=== PATIENT | male | born 1960 | race African-American/Black ===

== ENCOUNTER 2020-06-01 09:41 | Emergency (ER) | payer OTHER ==
[~2020-06-01] VITALS: Ht 170.2 cm; Wt 86.2 kg
[2020-06-01] MEDS ORDERED: IV NORMAL SALINE 1,000ML 1,000 ML IV ONE (10:00)
--- NOTE | 2020-06-01 10:12 | PHYS DOC ---
Past History Past Medical History: Hypertension, Other Additional Past Medical Histor: gout Past Surgical History: No Surgical History Alcohol Use: None General Adult EDM: Chief Complaint: SEIZURE HPI: HPI: 59-year-old male past medical history significant for hypothyroidism and hypertension, follows at [facility], presents the ED brought in by EMS after ana (x15 yrs), called 911, concern for witnessed seizure, described as entire body shaking, while pt was lying in his bed, associated urinary incontinence that lasted for approximately 5 minutes. EMS reports pt was initially postictal, but is now A&O x3, GCS 15. Patient states he felt well this morning, no recent fevers, head or neck injury, no past history of TBI. Has had 1 prior seizure approximately 15 years ago in the . Patient does report he had 2 beers this morning. No preceding symptoms or aura. Currently has no complaints in the ED, states "I was just sitting there and woke up with alot of people around me." No h/o alcohol dependence or withdrawal seizures. Is on one BP medication that he has not taken today. Denies any intentional drug overdose-has not taken tylenol recently. Cannot recall what his normal BP is. Follows at the [facility]. Review of Systems: Review of Systems: Constitutional: Denies fever or chills Eyes: Denies change in visual acuity HENT: Denies nasal congestion or sore throat Respiratory: Denies cough or shortness of breath Cardiovascular: Denies chest pain or edema GI: Denies abdominal pain, nausea, vomiting, bloody stools or diarrhea : Denies dysuria or hematuria Musculoskeletal: Denies back pain or joint pain Integument: Denies rash or diaphoresis Neurologic: Denies headache, neck pain, focal weakness or sensory changes Endocrine: Denies polyuria or polydipsia Lymphatic: Denies swollen glands Psychiatric: Denies depression or anxiety Current Medications: Current Meds: Current Medications Medications (Trade) Dose Ordered Sig/Vicky Start Time Stop Time Status Last Admin Dose Admin Sodium Chloride 1,000 ml @ 1,000 mls/hr 1X ONCE 06/01/20 10:00 06/01/20 10:59 UNV Physical Exam: PE: Constitutional: Well developed, well nourished, no acute distress, non-toxic appearance, hypertensive HENT: Normocephalic, atraumatic, Eyes: PERRLA, EOMI, conjunctiva normal, no discharge, left lateral tongue con tusion that resembles a bite sherrill - no laceration, no tongue fasciculations, glossy eyes-suspect intoxication, no midline neck pain, no neck bruits Neck: Normal range of motion, supple, Cardiovascular: S1/2 present, regular rhythm, tachycardic Lungs & Thorax: Speaking in full sentences, bilateral equal chest rise, no tachypnea or increased work of breathing Abdomen: soft, no tenderness, Skin: Warm, dry, no erythema, no rash. [] Back: No midline spinal tenderness, no CVA tenderness. [] Extremities: No tenderness, no cyanosis, no edema, no tremors, very large (suspect) olecranon bursa vs lipomas bl - not warm/red, nontender, pt states this is his "gout" and va occasionally drains them Neurologic: Alert and oriented X 3, normal motor function, normal sensory function, no focal deficits noted. [] Psychologic: Affect normal, judgement normal, mood normal. [] Current Patient Data: Vital Signs: Vital Signs Date Time Temp Pulse Resp B/P (MAP) Pulse Ox O2 Delivery O2 Flow Rate FiO2 06/01/20 09:41 97.8 113 16 172/123 (139) 97 Room Air EKG: EKG: Sinus tachycardia at 102, left axis deviation, normal intervals, T wave inversion lead III, no ST elevations or ST depressions Radiology/Procedures: Radiology/Procedures: IMAGING REPORT Signed PATIENT: SHANNAN ULLOA CACCOUNT: [id number] : 1960 LOCATION: ER AGE: 59 SEX: M EXAM STATUS: REG ER ORD. PHYSICIAN: SKYLAR HALL DO REASON: SEIZURE HX: SEIZURE 15 YRS AGO PROCEDURE: CT HEAD WO CONTRAST EXAM: Head CT without contrast. HISTORY: Seizure. TECHNIQUE: Computed tomographic images of the head were obtained without contrast. *One or more of the following individualized dose reduction techniques were utilized for this examination: 1. Automated exposure control. 2. Adjustment of the mA and/or kV according to patient size. 3. Use of iterative reconstruction technique. COMPARISON: None. FINDINGS: There is no acute or subacute extra-axial or intraparenchymal hemorrhage. There is no mass effect or midline shift. There is no hydrocephalus. There is decreased attenuation within the right parietal-occipital junction likely due to chronic infarction. The bolaños-white matter differentiation pattern is intact. The visualized portions of the orbits, paranasal sinuses and mastoid air cells are unremarkable. No suspicious calvarial lesion is seen. IMPRESSION: 1. No acute intracranial finding. Note is made that MRI is more sensitive for acute infarction and epileptogenic lesions. 2. Suspected infarct within the right parieto-occipital junction. Electronically signed by: Jolynn Alcantar MD (06/01/2020 10:32 AM) [id number] DICTATED AND SIGNED BY: JOLYNN ALCANTAR MD DATE: 06/01/20 1031 CC: PCP,NO; SKYLAR HALL DO ~MTH0 0 IMAGING REPORT Signed PATIENT: SHANNAN ULLOA CACCOUNT: [id number] : 1960 LOCATION: ER AGE: 59 SEX: M EXAM STATUS: REG ER ORD. PHYSICIAN: SKYLAR HALL DO REASON: SEIZURE PROCEDURE: PORTABLE CHEST 1V EXAM: Chest, single view. HISTORY: Seizure. COMPARISON: None. FINDINGS: A frontal view of the chest is obtained. There is no infiltrate, pleural effusion or pneumothorax. The heart is normal in size. IMPRESSION: No acute pulmonary finding. Electronically signed by: Jolynn Alcantar MD (06/01/2020 10:32 AM) [id number] DICTATED AND SIGNED BY: JOLYNN ALCANTAR MD DATE: 06/01/201031 CC: PCP,NO; SKYLAR HALL DO ~MTH0 0 IMAGING REPORT Signed PATIENT: SHANNAN ULLOA CACCOUNT: [id number] : 1960 LOCATION: ER AGE: 59 SEX: M EXAM STATUS: REG ER ORD. PHYSICIAN: SKYLAR HALL DO REASON: ALTERED MENTAL STATUS PROCEDURE: CT ANGIOGRAPHY HEAD AND NECK EXAM: CT angiogram of the head and neck with intravenous contrast. HISTORY: Altered mental status. TECHNIQUE: Computed tomographic images of the head and neck were obtained following the administration of intravenous contrast. 3-dimensional maximum intensity projection images were obtained. *One or more of the following individualized dose reduction techniques were utilized for this examination: 1. Automated exposure control. 2. Adjustment of the mA and/or kV according to patient size. 3. Use of iterative reconstruction technique. COMPARISON: Noncontrast head CT obtained on the same date. FINDINGS: There is a standard aortic arch branching pattern. The visualized aorta is normal in caliber. No aortic dissection is seen. The visualized pulmonary arteries are patent. There is no pneumothorax or pulmonary infiltrate within the visualized upper lobes. The aortic arch great vessels are widely patent. There is suspected segmental atherosclerotic plaque involving the origins and proximal 5 mm of the right vertebral artery with greater than 75 percent stenosis. The left vertebral artery is dominant. The remainder of the vertebral arteries are widely patent. There is severely calcified atherosclerotic plaque involving the right carotid bulb, origin of the right external carotid artery and origin and proximal right internal carotid artery. This results in 50-69 percent stenosis of the carotid bulb and near complete occlusion at the origin of the internal and external carotid arteries. There is reconstitution of flow within the remainder of the right internal carotid artery. There is slight ectasia of the cavernous segment of the right internal carotid artery. There is moderate to severe partially calcified atherosclerotic plaque involving the left carotid bulb and proximal internal and external carotid arteries. This results in less than 20 percent stenosis involving the proximal left internal carotid artery and no significant stenosis involving the proximal external carotid artery. There is no evidence of hemodynamically significant stenosis involving the intracranial arteries. The anterior communicating artery is patent. There are suspected developmentally absent or hypoplastic posterior communicating arteries, a normal variant. There is no suspicious enhancing lesion. There is no mass effect or midline shift. There is no hydrocephalus. There is encephalomalacia at the right parieto-occipital junction likely due to chronic infarction. There are advanced degenerative changes involving the cervical spine. This results in foraminal and central canal stenosis at multiple cervical levels. IMPRESSION: 1. Severely calcified atherosclerotic plaque involving the right carotid bifurcation. This results in near complete occlusion at the origins of the right internal and external carotid arteries and 50-69 percent stenosis involving the carotid bulb. 2. Moderate partially calcified atherosclerotic plaque involving the left carotid bifurcation, with less than 50 percent stenosis involving the proximal left internal carotid artery and no stenosis involving the left external carotid artery. 3. Severe atherosclerotic plaque involving the origin and proximal right vertebral artery, with near complete occlusion. This vessel reconstitutes to normal caliber within 5 mm from the vessel origin. The left vertebral artery slightly dominant. 4. Chronic infarct involving the right parieto-occipital junction. 5. Severe multilevel degenerative change involving the cervical spine, resulting in stenosis at multiple levels. 6. Note is made that MRI is more sensitive for acute infarction. PQRS Compliance Statement - Stenosis calculations for CT, MR and conventional angiography are based upon measurement of the distal ICA diameter in accordance with the NASCET methodology. Stenosis calculations for carotid ultrasound studies are derived from validated velocity criteria which are known to correlate with the NASCET methodology. Electronically signed by: Jolynn Alcantar MD (06/01/2020 12:19 PM) [id number] DICTATED AND SIGNED BY: JOLYNN ALCANTAR MD DATE: 06/01/20 1206 CC: PCP,RAQUEL; SKYLAR HALL DO ~MTH0 0 Heart Score: Risk Factors: Risk Factors: DM, Current or recent (<one month) smoker, HTN, HLP, family history of CAD, obesity. Risk Scores: Score 0 - 3: 2.5% MACE over next 6 weeks - Discharge Home Score 4 - 6: 20.3% MACE over next 6 weeks - Admit for Clinical Observation Score 7 - 10: 72.7% MACE over next 6 weeks - Early Invasive Strategies Course & Med Decision Making: Course & Med Decision Making Pertinent Labs and Imaging studies reviewed. (See chart for details) Patient with uncontrolled asymptomatic hypertension no signs of endorgan damage- has not taken his hypertensive medications today-I did offer admission for HTN and observation for seizure activity, but pt adamentaly refuses stating "I need a few days." Per [facility] policy it's not necessary given no end organ damage. CT imaging consistent with old CVA, significant right vertebral artery stenosis and significant left carotid artery stenosis. I discussed with vascular surgery at [facility] Dr. Marcus regarding these findings-given patient's lack of neurologic deficits (NIHSS 0) patient can follow-up outpatient and does not need any emergent surgery at this time. Labs also show marijuana abuse. Will discharge home with strict ED return precautions were given for recurrent seizures, altered mental status or neurologic deficits. Encouraged urgent outpatient follow-up with PMD and vascular surgery. Life-threatening processes were considered but are low suspicion at this time, given history, physical exam and ED workup. Pt was educated on all prescription medications and adverse effects. All patient's questions were answered and pt was stable at time of discharge. Life/limb-threatening differential includes but is not limited to, intracranial hemorrhage, diffuse axonal injury, spinal cord syndrome, unstable cervical fracture or SCIWORA, fractures or joint dislocations, neurovascular injuries, organ injury or laceration, pneumothorax, pneumoperitoneum, pericardial tamponade, unstable pelvic fracture, compartment syndrome, flail chest or respiratory distress, burn injury or asphyxiation I spoken with the patient and her caregivers. I explained the patient's condition, diagnoses and treatment plan based on the information available to me at this time. I have answered the patient and her caregiver's questions and addressed any concerns. The patient and her caregivers have a good understanding of patient's diagnosis, condition and treatment plan as can be expected at this point. Vital signs have been stable. Patient's condition is stable and appropriate for discharge from the emergency department. Patient will pursue further outpatient evaluation with primary care physician or other designated or consulting physician as outlined in the discharge instructions. The patient and/or caregivers are agreeable to this plan of care and follow-up instructions have been explained in detail. The patient and/or caregivers have received these instructions in written form and have expressed an understanding of the discharge instructions. The patient and/or caregivers are aware that any significant change of condition or worsening of symptoms should prompt immediate return to this or the closest emergency department or call to 911. Genia Disclaimer: Genia Disclaimer: This electronic medical record was generated, in whole or in part, using a voice recognition dictation system. 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 Uncontrolled hypertension Disposition: 01 DC HOME SELF CARE/HOMELESS Condition: STABLE Referrals: PCP,NO (PCP) [facility] 48 hours or FOLLOW UP WITH FAMILY MEDICINE: [address] [place] [address] [place] [address] [address] [address] [phone] Patient Instructions: Carotid Stenosis and Carotid Endarterectomy, Seizure, Adult Additional Instructions: FOLLOW UP WITH VASCULAR SURGERY: [facility] Address: [address] [place] [address] EMERGENCY DEPARTMENT GENERAL DISCHARGE INSTRUCTIONS Thank you for coming to [facility] (ED) today and trusting us with you care. We trust that you had a positivie experience in our Emergency Department. If you wish to speak to the department management, you may call the director at [phone]. YOUR FOLLOW UP INSTRUCTIONS ARE FOLLOWS: 1. Do you have a private Doctor? If you do not have a private doctor, please ask for a resource list of physicians or clinics that may be able to assist you with follow up care. 2. The Emergency Physician has interpreted your x-rays. The X-Ray specialist will also review them. If there is a change in the findings, you will be notified in 48 hours when at all possible. 3. A lab test or culture has been done, your results will be reviewed and you will be notified if you need a change in treatment. ADDITIONAL INSTRUCTIONS AND INFORMATION: 1. Your care today has been supervised by a physician who is specially trained in emergency care. Many problems require more than one evaluation for a complete diagnosis and treatment. We recommend that you schedule your follow up appointment as recommended to ensure complete treatment of you illness or injury. If you are unable to obtain follow up care and continue to have a problem, or if your condition worsens, we recommend that you return to the ED. 2. We are not able to safely determine your condition over the phone nor are we able to give sound medical advice over the phone. For these safety reasons, if you call for medical advice we will ask you to come to the ED for further evaluation. 3. If you have any questions regarding these discharge instructions please call the ED at [phone]. SAFETY INFORMATION: In the interest of safety, wellness, and injury prevention; we encourage you to wear your sealbelt, if you smoke; quite smoking, and we encourage family to use a protective helmet for bicycling and other sporting events that present an increased risk for head injury. IF YOUR SYMPTOMS WORSEN OR NEW SYMPTOMS DEVELOP, OR YOU HAVE CONCERNS ABOUT YOUR CONDITION; OR IF YOUR CONDITION WORSENS WHILE YOU ARE WAITING FOR YOUR FOLLOW UP APPOINTMENT; EITHER CONTACT YOUR PRIMARY CARE DOCTOR, THE PHYSICIAN WHOSE NAME AND NUMBER YOU WERE GIVEN, OR RETURN TO THE ED IMMEDIATELY. SKYLAR HALL DO Jun 01, 2020 10:12
[2020-06-01 10:28] LABS: BASO # 0.1 x10^3/uL (0.0-0.2); BASO % 1 % (0-3); EOS # 0.1 x10^3/uL (0.0-0.7); EOS % 1 % (0-3); HEMATOCRIT 45.3 % (39.0-53.0); HEMOGLOBIN 15.6 g/dL (13.0-17.5); LYMPH # 2.3 x10^3/uL (1.0-4.8); LYMPH % 24 % (24-48); MEAN CORPUSCULAR HEMOGLOBIN 34 pg (25-35); MEAN CORPUSCULAR HGB CONC 34 g/dL (31-37); MEAN CORPUSCULAR VOLUME 99 fL (79-100); MONO # 0.6 x10^3/uL (0.0-1.1); MONO % 6 % (0-9); NEUT # 6.6 x10^3uL (1.8-7.7); NEUT % 69 % (31-73); PLATELET COUNT 342 x10^3/uL (140-400); RED BLOOD COUNT 4.57 x10^6/uL (4.30-5.70); RED CELL DISTRIBUTION WIDTH 13.6 % (11.5-14.5); WHITE BLOOD COUNT 9.6 x10^3/uL (4.0-11.0)
--- NOTE | 2020-06-01 10:34 | RAD ---
ADDENDUM #1 Addendum: As noted in the findings section of the report, the aforementioned infarct at the right par ietal occipital junction is CHRONIC in appearance. Electronically signed by: Jolynn Bhatti MD (06/01/2020 12:08 PM) [id number] ORIGINAL REPORT EXAM: Head CT without contrast. HISTORY: Seizure. TECHNIQUE: Computed tomographic images of the head were obtained without contrast. *One or more of the following individualized dose reduction techniques were utilized for this examina tion: 1. Automated exposure control. 2. Adjustment of the mA and/or kV according to patient size. 3. Use of iterative reconstruction technique. COMPARISON: None. FINDINGS: There is no acute or subacute extra-axial or intraparenchymal hemorrhage. There is no mass effect or midline shift. There is no hydrocephalus. There is decreased attenuation within the right parietal-occipital junction likely due to chronic inf arction. The bolaños-white matter differentiation pattern is intact. The visualized portions of the orbits, paranasal sinuses and mastoid air cells are unremarkable. No s uspicious calvarial lesion is seen. IMPRESSION: 1. No acute intracranial finding. Note is made that MRI is more sensitive for acute infarction and ep ileptogenic lesions. 2. Suspected infarct within the right parieto-occipital junction. Electronically signed by: Jolynn Bhatti MD (06/01/2020 10:32 AM) [id number]
--- NOTE | 2020-06-01 10:35 | RAD ---
EXAM: Chest, single view. HISTORY: Seizure. COMPARISON: None. FINDINGS: A frontal view of the chest is obtained. There is no infiltrate, pleural effusion or pneumo thorax. The heart is normal in size. IMPRESSION: No acute pulmonary finding. Electronically signed by: Jolynn Bhatti MD (06/01/2020 10:32 AM) [id number]
[2020-06-01 10:42] LABS: ETHANOL < 10 mg/dL (0-10); SALIC 6.6 mg/dL (2.8-20.0)
[2020-06-01 10:43] LABS: ACETAMIN < 2.0 mcg/mL (10-30); CREATININE 1.2 mg/dL (0.7-1.3); GFR 75.2; POTASSIUM 4.3 mmol/L (3.5-5.1)
[2020-06-01] MEDS ORDERED: hydrALAZINE 20 MG/ML VIAL. IV ONE (10:45)
[2020-06-01 10:53] LABS: ALBUMIN 3.6 g/dL (3.4-5.0); ALBUMIN/GLOBULIN RATIO 0.8 (1.0-1.7); MAGNESIUM 1.8 mg/dL (1.8-2.4); TOTAL BILIRUBIN 0.4 mg/dL (0.2-1.0); TOTAL PROTEIN 7.9 g/dL (6.4-8.2)
[2020-06-01 11:00] VITALS: BP 163/115
--- NOTE | 2020-06-01 11:07 | EKG ---
[address] [address] Test Date: 2020-06-01 Test Time: 10:04:26 Pat Name: SHANNAN ULLOA Department: Room: Gender: M Operations Scheduler: ANTONIO : 1960 Requested By: SKYLAR HALL Order Number: [id number] Reading MD: Deondre Clancy Measurements Intervals Idanha Rate: 102 P: 34 MD: 146 QRS: -7 QRSD: 74 T: 18 QT: 334 QTc: 439 Interpretive Statements SINUS TACHYCARDIA LEFTWARD AXIS Electronically Signed On 06-02-2020 13:34:16 ENVIRONMENTAL PROJECT MANAGER by Deondre Clancy
[2020-06-01] MEDS ORDERED: IOHEXOL 350 MG/ML 100 ML VIAL. IV ONE (11:45)
--- NOTE | 2020-06-01 12:22 | RAD ---
EXAM: CT angiogram of the head and neck with intravenous contrast. HISTORY: Altered mental status. TECHNIQUE: Computed tomographic images of the head and neck were obtained following the administratio n of intravenous contrast. 3-dimensional maximum intensity projection images were obtained. *One or more of the following individualized dose reduction techniques were utilized for this examina tion: 1. Automated exposure control. 2. Adjustment of the mA and/or kV according to patient size. 3. Use of iterative reconstruction technique. COMPARISON: Noncontrast head CT obtained on the same date. FINDINGS: There is a standard aortic arch branching pattern. The visualized aorta is normal in calibe r. No aortic dissection is seen. The visualized pulmonary arteries are patent. There is no pneumothor ax or pulmonary infiltrate within the visualized upper lobes. The aortic arch great vessels are widel y patent. There is suspected segmental atherosclerotic plaque involving the origins and proximal 5 mm of the right vertebral artery with greater than 75 percent stenosis. The left vertebral artery is do minant. The remainder of the vertebral arteries are widely patent. There is severely calcified atherosclerotic plaque involving the right carotid bulb, origin of the ri ght external carotid artery and origin and proximal right internal carotid artery. This results in 50 -69 percent stenosis of the carotid bulb and near complete occlusion at the origin of the internal an d external carotid arteries. There is reconstitution of flow within the remainder of the right music industry internship al carotid artery. There is slight ectasia of the cavernous segment of the right internal carotid art joseph. There is moderate to severe partially calcified atherosclerotic plaque involving the left caroti d bulb and proximal internal and external carotid arteries. This results in less than 20 percent sten osis involving the proximal left internal carotid artery and no significant stenosis involving the pr oximal external carotid artery. There is no evidence of hemodynamically significant stenosis involving the intracranial arteries. The anterior communicating artery is patent. There are suspected developmentally absent or hypoplastic p osterior communicating arteries, a normal variant. There is no suspicious enhancing lesion. There is no mass effect or midline shift. There is no hydrocephalus. There is encephalomalacia at the right pa rieto-occipital junction likely due to chronic infarction. There are advanced degenerative changes involving the cervical spine. This results in foraminal and c entral canal stenosis at multiple cervical levels. IMPRESSION: 1. Severely calcified atherosclerotic plaque involving the right carotid bifurcation. This results in near complete occlusion at the origins of the right internal and external carotid arteries and 50-69 percent stenosis involving the carotid bulb. 2. Moderate partially calcified atherosclerotic plaque involving the left carotid bifurcation, with l ess than 50 percent stenosis involving the proximal left internal carotid artery and no stenosis invo lving the left external carotid artery. 3. Severe atherosclerotic plaque involving the origin and proximal right vertebral artery, with near complete occlusion. This vessel reconstitutes to normal caliber within 5 mm from the vessel origin. T he left vertebral artery slightly dominant. 4. Chronic infarct involving the right parieto-occipital junction. 5. Severe multilevel degenerative change involving the cervical spine, resulting in stenosis at multi ple levels. 6. Note is made that MRI is more sensitive for acute infarction. PQRS Compliance Statement - Stenosis calculations for CT, MR and conventional angiography are based u ac measurement of the distal ICA diameter in accordance with the NASCET methodology. Stenosis calcu lations for carotid ultrasound studies are derived from validated velocity criteria which are known t o correlate with the NASCET methodology. Electronically signed by: Jolynn Bhatti MD (06/01/2020 12:19 PM) [id number]
[2020-06-01 12:26] LABS: BARBITURATES NEG (NEG); BENZODIAZEPINES NEG (NEG); CANNABINOIDS POS (NEG); COCAINE NEG (NEG); METHADONE NEG (NEG); OPIATES NEG (NEG); PHENCYCLIDINE NEG (NEG)
[2020-06-01 12:30] LABS: AMPHETAMINE/METHAMPHETAMINE NEG (NEG)
[2020-06-01 12:47] LABS: CLARITY,URINE CLEAR; COLOR,URINE STRAW; GLUCOSE,URINE NEG (NEG)
[2020-06-01 12:48] LABS: BACTERIA,URINE 0 /HPF (0-FEW); BILIRUBIN,URINE NEG (NEG); NITRITE,URINE NEG (NEG); RBC,URINE 0 /HPF (0-2); SQUAMOUS EPITHELIAL CELL,UR OCC /LPF; UROBILINOGEN,URINE 0.2 mg/dL (0.2 mg/dL); WBC,URINE 0 /HPF (0-4)
== END 2020-06-01 13:55 | disposition home or self-care (01) ==
LOC: ER 09:41
DX: R56.9 Unspecified convulsions (principal); I65.22 Occlusion and stenosis of left carotid artery; I65.01 Occlusion and stenosis of right vertebral artery; I10 Essential (primary) hypertension; F19.10 Other psychoactive substance abuse, uncomplicated; Z86.73 Personal history of transient ischemic attack (TIA), and cerebral infarction without residual deficits
CPT/HCPCS: 36415; 70450; 70496; 70498; 71045; 80053; 80307; 80329; 81001; 82550; 83690; 83735; 83880; 84443; 84484; 85025; 85610; 85730; 93005; 96360; 99284; G0480; J7030; Q9967